=== PATIENT | female | born 1975 | race Caucasian/White ===

== ENCOUNTER → 2017-07-10 | Outpatient (CLI) | payer OTHER ==
--- NOTE | 2017-07-10 12:19 | RAD ---
Complete abdominal ultrasound 07/10/2017 Indication: Bloating abdominal pain. Symptoms x6 weeks. Comparison study: None Findings: Ultrasound evaluation of the abdomen was performed. Static images are submitted to PACS. Visualized portions of the pancreas are unremarkable. The left portions of the aorta and IVC are within normal limits. The gallbladder is normal appearance evidence of wall thickening, stones, or sludge. The liver is normal in appearance. Common bile duct is nondilated measuring 4 mm. No focal hepatic lesions are identified. Liver is normal in size measuring 15 cm longitudinally. The right kidney is normal in appearance measuring 10 cm in length. Left kidney is normal in appearance measuring 9 cm in length. Spleen is unremarkable in appearance and normal in size. Impression: Normal abdominal ultrasound
== END | disposition home or self-care (01) ==
LOC: US 08:41
PROVIDERS: ATTEND Family Medicine
DX: R10.13 Epigastric pain (principal); R19.7 Diarrhea, unspecified; R14.0 Abdominal distension (gaseous); Z87.19 Personal history of other diseases of the digestive system
CPT/HCPCS: 76700